=== PATIENT | female | born 1960 | race Caucasian/White ===

== ENCOUNTER → 2016-12-19 16:37 | Outpatient (CLI) | payer MEDICAID ==
[2015-07-18 16:55] VITALS: BMI 36.9
[~2016-12-19 16:37] MED LIST: ASPIRIN81 MG PO; CELEXA40 MG PO; DALIRESP500 MCG PO; KLONOPIN1 MG PO; NICODERM C1 PATCH .3 TRANSDERM; PEPCID AC20 MG PO; SPIRIVA18 MCG INH; VENTOLIN HFA18 GM INH
== END | disposition home or self-care (01) ==
LOC: D.CT 16:37
DX: R10.9 Unspecified abdominal pain (principal)